=== PATIENT | female | born 1985 | race Caucasian/White ===

== ENCOUNTER 2024-03-07 19:20 | Emergency (ER) | payer SELFPAY ==
[~2024-03-07] VITALS: Ht 157.5 cm; Wt 65.9 kg
[2024-03-07 20:14] LABS: Basophils # (auto) 0 10 ^3/uL (0-0.2); Basophils % (auto) 0.3 % (0.0-2.0); Eosinophils # (auto) 0.8 10 ^3/uL (0-0.8); Eosinophils % (auto) 5.7 % (0.0-7.0); Hemoglobin 13.9 g/dL (12.2-16.2); Lymphocytes # (auto) 1.8 10 ^3/uL (0.4-5.4); Lymphocytes % (auto) 12.6 % (10.0-50.0); Mean Corpuscular Hemoglobin 31.4 pg (28.0-32.0); Mean Corpuscular Volume 92.4 fL (80.0-100.0); Monocytes # (auto) 0.9 10 ^3/uL (0-1.3); Monocytes % (auto) 6.5 % (0.0-12.0); Neutrophils # (auto) 10.7 10 ^3/uL (1.6-8.6); Neutrophils % (auto) 74.9 % (37.0-80.0); Red Blood Cells 4.43 10^6/uL (4.0-5.20); Red Cell Distribution Width 13.8 % (11.8-14.3); White Blood Cell 14.3 10^3/uL (4.4-10.8)
[2024-03-07 20:32] LABS: Anion Gap 11 (5-15); Carbon Dioxide 22 mmol/L (20-30); Chloride 107 mmol/L (98-107); Potassium 3.5 mmol/L (3.5-5.1); Sodium 140 mmol/L (136-145)
[2024-03-07 20:33] LABS: Calcium 9.8 mg/dL (8.7-10.4)
[2024-03-07 20:38] LABS: Blood Urea Nitrogen 7 mg/dL (9-23); Glucose 117 mg/dL (74-106)
[2024-03-07 21:50] VITALS: PULSE 84; RESP 28; O2SAT 92
[2024-03-07] MEDS: ETOMIDATE (2MG/ML) 20ML VIAL IV ONE ×2 (22:07→22:32)
[2024-03-07 23:36] VITALS: BP 138/85; PULSE 82; RESP 16; TEMP 99.2; O2SAT 98
== END 2024-03-07 23:39 | disposition home or self-care (01) ==
LOC: ER 19:20
DX: S43.004A Unspecified dislocation of right shoulder joint, initial encounter (principal); S09.90XA Unspecified injury of head, initial encounter; R56.9 Unspecified convulsions; J45.909 Unspecified asthma, uncomplicated; F14.10 Cocaine abuse, uncomplicated; X58.XXXA Exposure to other specified factors, initial encounter; Y93.89 Activity, other specified; Y92.89 Other specified places as the place of occurrence of the external cause; Y99.8 Other external cause status
CPT/HCPCS: 23650; 36415; 70450; 73030; 80048; 85025; 93005

== ENCOUNTER 2025-02-04 18:18 | Emergency (ER) | payer OTHER ==
[~2025-02-04] VITALS: Ht 157.5 cm; Wt 87.2 kg
--- NOTE | 2025-02-04 19:54 | DVH ---
CLINICAL INDICATION: s/p shoulder reduction TECHNIQUE: 2 radiographic views of the right shoulder were obtained. Comparison: XY R SHOULDER 2+ VIEW XRAY on DOS: 03/07/24, XY R SHOULDER 2+ VIEW XRAY on DOS: 03/07/24 FINDINGS/IMPRESSION: There is 1 mm density inferior to the glenoid which may represent a small avulsed bony fragment of un known chronicity versus nonspecific soft tissue calcification. Otherwise, no evidence of acute fract ure or dislocation. The visualized joint space is well maintained. The alignment is anatomical.
[2025-02-04] MEDS ORDERED: IBUP-1456 PO (20:20)
[2025-02-04] MEDS ORDERED: TIZA-142 PO (20:20)
--- NOTE | 2025-02-04 20:20 | ED.PDOC ---
Back pain HPI HPI Comments Pt presents to the ER from [facility] (formerly [facility]) with C/O right shoulder pain. Pt states she was being tickled by her and slid down from couch and felt her shoulder "pop out of place." Pt went to [facility] ([facility]) and they attempted to place shoulder back in place, while doing confirmation xray pts shoulder was popped back out and [place] then referred pt to ER. Sling in place, + deformity, CSM intact. PMH- shoulder dislocation x1 year ago. Chief Complaint: Upper Extremity Time Seen by MD: 18:40 Reviewed Notes: Nurses Notes, Medications, Allergies Allergies: Coded Allergies: NO KNOWN ALLERGIES (Unverified , 03/07/24) Home Meds Active Scripts Ibuprofen (Ibuprofen) 800 Mg Tab, 800 MG PO Q8HP PRN for 7 Days, #21 TAB Prov:FREDERICK MCARTHUR 02/04/25 Discontinued Scripts Tizanidine Hydrochloride (Tizanidine Hcl) 4 Mg Tab, 4 MG PO BID PRN for 5 Days, #10 TAB Prov:FREDERICK MCARTHURP 02/04/25 Information Source: Patient Mode of Arrival: Ambulatory Past Medical History PAST MEDICAL HISTORY: Denies Surgical History: Denies all surgeries FARE COLLECTOR History: No Pertinent FARE COLLECTOR History Family History Family History: Reviewed,noncontributory to illness Social History Smoker: Non-Smoker Alcohol: Denies ETOH Use Drugs: Denies Drug Use Lives In: Home Constitutional: denies: chills, diaphoresis, fatigue, fever, malaise, sweats, weakness, others EENTM: denies: blurred vision, double vision, ear bleeding, ear discharge, ear drainage, ear pain, ear ringing, eye pain, eye redness, hearing loss, mouth pain, mouth swelling, nasal discharge, nose bleeding, nose congestion, nose pain, photophobia, tearing, throat pain, throat swelling, voice changes, others Respiratory: denies: cough, hemoptysis, orthopnea, SOB at rest, shortness of breath, SOB with excertion, stridor, wheezing, others Cardiovascular: denies: chest pain, dizzy spells, diaphoresis, Dyspnea on exertion, edema, irregular heart beat, left arm pain, lightheadedness, palpitations, PND, syncope, others Gastrointestinal: denies: abdomen distended, abdominal pain, blood streaked bowels, constipated, diarrhea, dysphagia, difficulty swallowing, hematemesis, melena, nausea, poor appetite, poor fluid intake, rectal bleeding, rectal pain, vomiting, others Genitourinary: denies: abnormal vagina bleeding, burning, dyspareunia, dysuria, flank pain, frequency, hematuria, incontinence, pain, , vagina discharge, urgency, others Neurological: denies: dizziness, fainting, headache, left sided numbness, left sided weakness, numbness, paresthesia, pre-existing deficit, right sided numbness, right sided weakness, seizure, speech problems, tingling, tremors, weakness, others Musculoskeletal: reports: joint pain; denies: back pain, gout, joint swelling, muscle pain, muscle stiffness, neck pain, others Integumetry: denies: bruises, change in color, change in hair/nails, dryness, laceration, lesions, lumps, rash, wounds, others Allergic/Immunocompromised: denies: Difficulty Healing, Frequent Infections, Hives, Itching, others Hematologic/Lymphatic: denies: anemia, blood clots, easy bleeding, easy bruising, swollen glands, others Endocrine: denies: excessive hunger, excessive sweating, excessive thirst, excessive urination, flushing, intolerance to cold, intolerance to heat, unexplained weight gain, unexplained weight loss, others Psychiatric: denies: anxiety, bipolar disorder, depression, hopeless, panic disorder, schizophrenia, sleepless, suicidal, others Physical Exam General Appearance: No Apparent Distress, Normal HEENT: Pharynx Normal Neck: Full Range of Motion, Non-Tender Respiratory: Lungs Clear, No Respiratory Distress, Normal Breath Sounds Cardiovascular: No Murmur, Normal Peripheral Pulses, Regular Rate/Rhythm Breast Exam: Deferred Gastrointestinal: Non Tender, Soft Genitalia: Deferred Pelvic: Deferred Rectal: Deferred Extremities: Normal capillary refill Musculoskeletal : Location: Right Extremity Location: Shoulder (Appears anterior dislocated moderate tenderness on palpation strength and sensory intact positive radial pulse) Apperance: Normal Neurologic: Alert, No Motor Deficits, Normal Affect, Normal Mood, No Sensory Deficits Cerebellar Function: Normal Reflexes: Normal Skin: Dry, Normal Color, Warm Lymphatic: No Adenopathy Was a procedure done? Was a procedure done?: Yes Sedation Sedation?: No Informed consent obtained: Yes Reduction Indication: Subluxation Sedation: Attempted Reduction Post-reduction x-ray show: Good Alignment Informed consent obtained: Yes Risks/benefits/alt described: Yes Notes Successful reduction patient placed in arm sling positive CSM tolerated well Back Pain Differential Dx Differential Diagnosis: Fracture, Musculoskeletal Pain, Strain X-Ray, Labs, Meds, VS Vital Signs Date Time Temp Pulse Resp B/P (MAP) Pulse Ox O2 Delivery O2 Flow Rate FiO2 02/04/25 20:25 98.3 86 18 148/81 (103) 95 98.3 02/04/25 20:25 86 18 95 Room Air 02/04/25 18:27 99.1 81 16 148/93 (111) 97 99.1 X-Ray, Labs, Meds, VS Comment CLINICAL INDICATION: s/p shoulder reduction TECHNIQUE: 2 radiographic views of the right shoulder were obtained. Comparison: XY R SHOULDER 2+ VIEW XRAY on DOS: 03/07/24, XY R SHOULDER 2+ VIEW XRAY on DOS: 03/07/24 FINDINGS/IMPRESSION: There is 1 mm density inferior to the glenoid which may represent a small avulsed bony fragment of unknown chronicity versus nonspecific soft tissue calcification. Otherwise, no evidence of acute fracture or dislocation. The visualized joint space is well maintained. The alignment is anatomical. Time of 1ST Reevaluation: 18:40 Reevaluation 1ST: Unchanged Time of 2ND Reevaluation: 02:12 Reevaluation 2ND: Improved Patient Education/Counseling: Diagnosis, Treatment, Prognosis, Need For Follow Up Family Education/Counseling: No Family Present SEPSIS Sepsis Screen Date sepsis recognized/suspect: Feb 04, 2025 Time Sepsis recognized/suspect: 1826 Recent Procedure: No On Antibiotic Therapy: No Respiratory Rate >20: No Heart Rate >90: No Temp<36 C (96.8 F) or >38.3 C: No SBP <90 or MAP <65 mmHG: No New Acute Mental Status Change: No Is the patient on CPAP, BIPAP,: No Physician Orders R Shoulder 2+ View Xray (02/04/25 18:39) Vital Signs Date Time Temp Pulse Resp B/P (MAP) Pulse Ox O2 Delivery O2 Flow Rate FiO2 02/04/25 20:25 98.3 86 18 148/81 (103) 95 98.3 02/04/25 20:25 86 18 95 Room Air 02/04/25 18:27 99.1 81 16 148/93 (096) 88 99.1 Departure 1 Departure Time of Disposition: 20:19 Impression: Primary Impression: Dislocation of right shoulder joint Qualified Codes: S43.004A - Unspecified dislocation of right shoulder joint, initial encounter Disposition: [facility] Condition: Stable e-Prescriptions Ibuprofen (Ibuprofen) 800 Mg Tab 800 MG PO Q8HP PRN for 7 Days, #21 TAB Prov: FREDERICK MCARTHUR 02/04/25 Discharged With: Self Critical Care Note Critical Care Time?: No Stability Stability form required: No FREDERICK MCARTHUR Feb 04, 2025 20:20
[2025-02-04 20:25] VITALS: BP 148/81; PULSE 86; RESP 18; TEMP 98.3; O2SAT 95
== END 2025-02-04 20:33 | disposition home or self-care (01) ==
LOC: ER 18:18
DX: S43.004A Unspecified dislocation of right shoulder joint, initial encounter (principal); X58.XXXA Exposure to other specified factors, initial encounter; Y93.89 Activity, other specified; Y92.89 Other specified places as the place of occurrence of the external cause; Y99.8 Other external cause status
CPT/HCPCS: 23650; 73030